=== PATIENT | male | born 1990 | race Caucasian/White ===

== ENCOUNTER 2017-09-08 08:06 | Emergency (ER) | payer OTHER ==
[~2017-09-08] VITALS: Ht 170.2 cm; Wt 141.5 kg
[2017-09-08 08:12] VITALS: Ht 170.2 cm; Wt 141.5 kg
[2017-09-08 10:47] VITALS: BP 151/82
== END 2017-09-08 10:47 | disposition home or self-care (01) ==
LOC: ED 08:06
DX: S20.212A Contusion of left front wall of thorax, initial encounter (principal); J45.909 Unspecified asthma, uncomplicated; W18.41XA Slipping, tripping and stumbling without falling due to stepping on object, initial encounter; Y93.89 Activity, other specified; Y92.89 Other specified places as the place of occurrence of the external cause; Y99.0 Civilian activity done for income or pay